=== PATIENT | male | born 1995 ===

== ENCOUNTER 2020-01-06 15:18 | Inpatient (IN) ==
[2020-01-06] MEDS ORDERED: MEPERIDINE 50 MG/1 ML VIAL IV STA (16:10)
[2020-01-06] MEDS ORDERED: ONDANSETRON 4 MG/2 ML VIAL IV STA (16:10)
[2020-01-06] MEDS ORDERED: MEPERIDINE 50 MG/1 ML VIAL ONE (16:12)
[2020-01-06] MEDS ORDERED: ONDANSETRON 4 MG/2 ML VIAL ONE ×2 (16:12→19:44)
[2020-01-06] MEDS ORDERED: BALANCED SALT IRRIG SOLN 15 ML BOTTLE ONE (17:25)
[2020-01-06] MEDS: LACTATED RINGERS 1,000 ML IV SCH (17:35)
[2020-01-06] MEDS ORDERED: MORPHINE 4 MG/1 ML VIAL IV PRN ×2 (17:44)
[2020-01-06] MEDS ORDERED: diphenhydrAMINE CAP 25 MG CAPSULE PO PRN (17:44)
[2020-01-06] MEDS ORDERED: ONDANSETRON 4 MG/2 ML VIAL IV PRN (17:44)
[2020-01-06] MEDS ORDERED: MAGNESIUM HYDROXIDE SUSP 30 ML UDCUP PO PRN (17:44)
[2020-01-06] MEDS ORDERED: ceFAZolin 1,000 MG VIAL ONE (17:47)
[2020-01-06] MEDS ORDERED: BACITRACIN OINT 0.9 GM PACK TOP ONE (17:47)
[2020-01-06] MEDS ORDERED: ROPIVACAINE 0.5% 30 ML VIAL ONE (19:25)
[2020-01-06] MEDS ORDERED: DEXAMETHASONE 4 MG/1 ML VIAL ONE ×2 (19:26→19:44)
[2020-01-06] MEDS ORDERED: LIDOCAINE 2% 5 ML VIAL ONE (19:43)
[2020-01-06] MEDS ORDERED: MIDAZOLAM 2 MG/2 ML VIAL ONE (19:43)
[2020-01-06] MEDS ORDERED: SEVOFLURANE 1 UNIT/15 MINUTE INH ONE (19:43)
[2020-01-06] MEDS ORDERED: propofoL 200 MG/20 ML VIAL IV ONE (19:43)
[2020-01-06] MEDS ORDERED: fentaNYL 100 MCG/2 ML VIAL ONE (19:44)
[2020-01-06] MEDS ORDERED: GLYCOPYRROLATE 0.4 MG/2 ML VIAL ONE (19:44)
[2020-01-06] MEDS ORDERED: NEOSTIGMINE 10 MG/10 ML VIAL ONE (19:44)
[2020-01-06] MEDS ORDERED: LACTATED RINGERS 1,000 ML IV ONE (19:44)
[2020-01-06] MEDS ORDERED: GENTAMICIN 80 MG/2 ML VIAL ONE (19:45)
[2020-01-06] MEDS: GENTAMICIN INJ 120 MG in PREMIX 1 EACH IV SCH (19:45)
[2020-01-06] MEDS: KETOROLAC 30 MG/1 ML VIAL IV PRN (22:14)
[2020-01-06 22:41] LABS: Basophils % 0.2 % (0.0-0.8); Hematocrit 42.8 VOL% (42.0-52.0); Hemoglobin 14.8 GM/DL (14.0-18.0); Immature Granulocytes % 0.3 %; Immature Granulocytes Absolute 0.04 #; Lymphocytes # 0.9 10*3/uL (1.4-4.0); Lymphocytes % 7.5 % (21.2-54.2); Mean Corpuscular HGB Conc 34.6 GM/DL (32-36); Mean Corpuscular Volume 88.1 FL (87-102); Mean Platelet Volume 9.9 FL (9.6-12.0); Monocytes % 2.2 % (1.7-12.7); Neutrophils % 89.8 % (38.7-73.9); Platelet Count 245 T/CUMM (130-400); Red Blood Count 4.86 MC/CUMM (3.8-5.5); Red Cell Distribution Width 12.5 % (9.3-17.3); White Blood Count 11.8 T/CUMM (4-12)
[2020-01-06 23:09] LABS: Calcium 8.9 MG/DL (8.5-10.1); Osmolality,Calculated 272.1 MOS/KG (273-304)
[2020-01-07] MEDS: ceFAZolin 2,000 MG in PREMIX 1 EACH IV SCH ×4 (03:50→16:48)
[2020-01-07] MEDS: GENTAMICIN INJ 120 MG in PREMIX 1 EACH IV SCH ×4 (03:52→20:32)
[2020-01-07] MEDS: LACTATED RINGERS 1,000 ML IV SCH ×2 (03:53→03:54)
[2020-01-07] MEDS: KETOROLAC 30 MG/1 ML VIAL IV PRN ×3 (07:31→21:58)
[2020-01-08] MEDS: ceFAZolin 2,000 MG in PREMIX 1 EACH IV SCH ×3 (01:45→17:27)
[2020-01-08] MEDS: LACTATED RINGERS 1,000 ML IV SCH ×2 (01:46→10:20)
[2020-01-08] MEDS: GENTAMICIN INJ 120 MG in PREMIX 1 EACH IV SCH ×4 (05:08→21:56)
[2020-01-08 08:02] LABS: Basophils % 0.2 % (0.0-0.8); Eosinophils % 0.3 % (0.00-10.9); Hematocrit 37.9 VOL% (42.0-52.0); Hemoglobin 12.6 GM/DL (14.0-18.0); Immature Granulocytes % 0.1 %; Immature Granulocytes Absolute 0.01 #; Lymphocytes # 3.4 10*3/uL (1.4-4.0); Lymphocytes % 38.3 % (21.2-54.2); Mean Corpuscular HGB Conc 33.2 GM/DL (32-36); Mean Corpuscular Volume 91.1 FL (87-102); Mean Platelet Volume 10.5 FL (9.6-12.0); Monocytes % 9.3 % (1.7-12.7); Neutrophils % 51.8 % (38.7-73.9); Platelet Count 212 T/CUMM (130-400); Red Blood Count 4.16 MC/CUMM (3.8-5.5); Red Cell Distribution Width 12.7 % (9.3-17.3); White Blood Count 8.9 T/CUMM (4-12)
[2020-01-08] MEDS ORDERED: BACITRACIN OINT 0.9 GM PACK TOP ONE (08:11)
[2020-01-08] MEDS ORDERED: NEOMYCIN/POLYMYXIN/BACITRACIN OINT 28.4 GM TUBE TOP ONE (09:10)
[2020-01-08] MEDS ORDERED: ROPIVACAINE 0.5% 30 ML VIAL ONE (09:50)
[2020-01-08] MEDS ORDERED: HYDROmorphone 2 MG/1 ML VIAL ONE (09:50)
[2020-01-08] MEDS ORDERED: ONDANSETRON 4 MG/2 ML VIAL ONE ×2 (09:50→10:05)
[2020-01-08] MEDS ORDERED: LIDOCAINE 2% 5 ML VIAL ONE (10:04)
[2020-01-08] MEDS ORDERED: propofoL 200 MG/20 ML VIAL IV ONE (10:04)
[2020-01-08] MEDS ORDERED: SEVOFLURANE 1 UNIT/15 MINUTE INH ONE (10:04)
[2020-01-08] MEDS ORDERED: fentaNYL 100 MCG/2 ML VIAL ONE (10:05)
[2020-01-08] MEDS: HYDROmorphone 2 MG/1 ML VIAL IV PRN ×3 (10:05→10:32)
[2020-01-08] MEDS ORDERED: ONDANSETRON 4 MG/2 ML VIAL IV PRN (10:22)
[2020-01-08] MEDS: KETOROLAC 30 MG/1 ML VIAL IV PRN (17:28)
[2020-01-09] MEDS: ceFAZolin 2,000 MG in PREMIX 1 EACH IV SCH ×3 (01:15→18:18)
[2020-01-09] MEDS: KETOROLAC 30 MG/1 ML VIAL IV PRN ×2 (08:20→22:27)
[2020-01-10] MEDS: ceFAZolin 2,000 MG in PREMIX 1 EACH IV SCH ×3 (00:51→10:56)
[2020-01-10 08:19] VITALS: BP 135/66
[2020-01-10] MEDS: KETOROLAC 30 MG/1 ML VIAL IV PRN (09:49)
== END 2020-01-10 11:45 | disposition home or self-care (01) | DRG 465 ==
LOC: EDUNIT# → EDBD → N.ED 15:18 → N.3E 17:20 → N.EDINP 17:44 → N.3E 17:59
PROVIDERS: ADMIT Orthopaedic Surgery; ATTEND Orthopaedic Surgery